=== PATIENT | female | born 1980 | race Caucasian/White ===

== ENCOUNTER 2019-10-15 14:31 | Emergency (ER) | payer SELFPAY ==
--- NOTE | 2019-10-15 15:14 | ER Document Report ---
ED Medical Screen (RME) - General Chief Complaint: Chest Pain Stated Complaint: CHEST PAIN/HEAD PAIN/DIZZINESS Time Seen by Provider: 10/15/19 15:02 Mode of Arrival: Ambulatory Information source: Patient Notes: 39-year-old female patient presenting with chief complaint of chest pain that began yesterday morning upon awaking. She reports associated dizziness and headache. She states her chest feels very tight. She states occasionally her heart feels like it is fluttering. Exam: Heart sounds S1-S2 present, no ectopy noted. I have greeted and performed a rapid initial assessment of this patient. A comprehensive ED assessment and evaluation of the patient, analysis of test results and completion of the medical decision making process will be conducted by additional ED providers. I have specifically instructed the patient or family members with the patient to immediately return to any nursing staff should anything change in the patient's condition or with their chief complaint. TRAVEL OUTSIDE OF THE [place] IN LAST 30 DAYS: No - Related Data Allergies/Adverse Reactions: Sulfa (Sulfonamide Antibiotics) Allergy (Verified 12/31/12 20:14) Home Medications: thyroid Past Medical History - Social History Chew tobacco use (# tins/day): No Frequency of alcohol use: Rare Drug Abuse: None Family history: Malignancy Endocrine Medical History: Reports: Hx Hypothyroidism GI Medical History: Reports: Hx Gastroesophageal Reflux Disease Musculoskeltal Medical History: Reports Hx Musculoskeletal Trauma Past Surgical History: Reports: Hx Orthopedic Surgery - knee right, Hx Thyroid Surgery - Immunizations Immunizations up to date: Yes Hx Diphtheria, Pertussis, Tetanus Vaccination: Yes Physical Exam - Vital signs Vitals: Temp Pulse Resp BP Pulse Ox 99.7 F 109 H 16 132/82 H 98 10/15/19 14:55 10/15/19 14:55 10/15/19 14:55 10/15/19 14:55 10/15/19 14:55 Course - Vital Signs Vital signs: Temp Pulse Resp BP Pulse Ox 99.7 F 109 H 17 118/83 96 10/15/19 14:55 10/15/19 14:55 10/15/19 17:01 10/15/19 17:00 10/15/19 17:01 - Laboratory Result Diagrams: 10/15/19 16:28 10/15/19 16:28 Laboratory results interpreted by me: 10/15/19 10/15/19 16:28 16:28 [place] % (Auto) 16.0 H Potassium 3.5 L Chloride 95 L
--- NOTE | 2019-10-15 15:37 | RADIOLOGY REPORT (SQ) ---
EXAM DESCRIPTION: CHEST 2 VIEWS COMPLETED DATE/TIME: 10/15/2019 3:28 pm REASON FOR STUDY: chest pain COMPARISON: Two-view chest 11/19/2008 EXAM PARAMETERS: NUMBER OF VIEWS: two views TECHNIQUE: Digital Frontal and Lateral radiographic views of the chest acquired. RADIATION DOSE: NA LIMITATIONS: none FINDINGS: LUNGS AND PLEURA: No opacities, masses or pneumothorax. No pleural effusion. MEDIASTINUM AND HILAR STRUCTURES: No masses or contour abnormalities. HEART AND VASCULAR STRUCTURES: Heart normal size. No evidence for failure. BONES: No acute findings. HARDWARE: None in the chest. OTHER: No other significant finding. IMPRESSION: NO ACUTE RADIOGRAPHIC FINDING IN THE CHEST. TECHNICAL DOCUMENTATION: JOB ID: [id number] [employer]- All Rights Reserved Reading location - IP/workstation name: [email or web address]
[2019-10-15 16:36] LABS: A TYPE INFLUENZA AG NEGATIVE (NEGATIVE); B INFLUENZA AG NEGATIVE (NEGATIVE)
[2019-10-15 16:54] LABS: ABSOLUTE LYMPHOCYTES (AUTO) 1.6 10^3/uL (0.5-4.7); ABSOLUTE MONOCYTES (AUTO) 0.8 10^3/uL (0.1-1.4); ABSOLUTE NEUT (AUTO) 2.6 10^3/uL (1.7-8.2); BASOPHILS % (AUTO) 0.8 % (0-2); EOSINOPHILS % (AUTO) 0.2 % (0-6); HEMATOCRIT 38.9 % (36.0-47.0); HEMOGLOBIN 13.8 g/dL (12.0-15.5); LYMPHOCYTES % (AUTO) 31.6 % (13-45); MEAN CORPUSCULAR HEMOGLOBIN 30.5 pg (27.0-33.4); MEAN CORPUSCULAR HGB CONC 35.4 g/dL (32.0-36.0); MEAN CORPUSCULAR VOLUME 86 fl (80-97); PLATELET COUNT 269 10^3/uL (150-450); RED BLOOD COUNT 4.52 10^6/uL (3.72-5.28); RED CELL DISTRIBUTION WIDTH 12.8 % (11.5-14.0); SEGMENTED NEUTROPHILS % (AUTO) 51.4 % (42-78); TOTAL CELLS COUNTED % (AUTO) 100 %
[2019-10-15 17:20] LABS: ALBUMIN 4.5 g/dL (3.5-5.0); ALKALINE PHOSPHATASE 65 U/L (38-126); ANION GAP 14 (5-19); ASPARTATE AMINO TRANSFERASE 24 U/L (14-36); BILIRUBIN,TOTAL 0.4 mg/dL (0.2-1.3); BLOOD UREA NITROGEN 10 mg/dL (7-20); CALCIUM 9.4 mg/dL (8.4-10.2); CARBON DIOXIDE 29 mmol/L (22-30); CHLORIDE 95 mmol/L (98-107); GLUCOSE 93 mg/dL (75-110); POTASSIUM 3.5 mmol/L (3.6-5.0); TOTAL PROTEIN 7.7 g/dL (6.3-8.2)
--- NOTE | 2019-10-15 17:48 | EKG REPORT ---
SEVERITY:- ABNORMAL ECG - SINUS TACHYCARDIA PROBABLE LEFT ATRIAL ABNORMALITY NONSPECIFIC T ABNORMALITIES, DIFFUSE LEADS : Confirmed by: Abhijit Arredondo MD 15-Oct-2019 17:46:09
[2019-10-15] MEDS ORDERED: ONDANSETRON HCL INJ/PF 4 MG/2 ML SDV IV ONE (18:19)
[2019-10-15] MEDS ORDERED: KETOROLAC TROMETHAMINE INJ/PF 30 MG/1 ML SDV IV ONE (18:19)
[2019-10-15] MEDS ORDERED: DIPHENHYDRAMINE HCL 50 MG/ML VIAL IV ONE (18:19)
[2019-10-15] MEDS ORDERED: NORMAL SALINE 1000 ML 1,000 ML IV ONE (18:19)
--- NOTE | 2019-10-15 18:19 | ER Document Report ---
ED General - General Chief Complaint: Chest Pain Stated Complaint: CHEST PAIN/HEAD PAIN/DIZZINESS Time Seen by Provider: 10/15/19 15:02 Primary Care Provider: [facility] [Provider Group] - Follow up in 1 week TRAVEL OUTSIDE OF THE [place] IN LAST 30 DAYS: No - HPI Notes: 39-year-old female to the emergency department with complaints of headache, chest pain, cough, shortness of breath, body aches that began yesterday and have been progressively getting worse. She states that the headache is her worst symptom. She states the headache is all over. She denies photophobia but does endorse some nausea. She states that she has this irritating cough and she feels like her chest is tight and that her heart is racing. She did have her thyroid removed several years ago and is on Synthroid for replacement. She is not had her thyroid studies done in a long time. She states that she has had a fever T-max of 100. She denies any sick contacts but she does work at [email or web address]. She denies any recent travel. She is not in any oral contraceptive. She last was on control about 1 year ago but none since. Denies unilateral leg swelling or erythema. She has never had a clot before PE. She states that she feels the worse when she is trying to get up and walk around. - Related Data Allergies/Adverse Reactions: Sulfa (Sulfonamide Antibiotics) Allergy (Verified 12/31/12 20:14) Home Medications: thyroid Past Medical History - General Information source: Patient - Social History Smoking Status: Never Smoker Chew tobacco use (# tins/day): No Frequency of alcohol use: Rare Drug Abuse: None Family History: Reviewed & Not Pertinent Patient has suicidal ideation: No Patient has homicidal ideation: No Endocrine Medical History: Reports: Hx Hypothyroidism GI Medical History: Reports: Hx Gastroesophageal Reflux Disease Musculoskeletal Medical History: Reports Hx Musculoskeletal Trauma Past Surgical History: Reports: Hx Orthopedic Surgery - knee right, Hx Thyroid Surgery - Immunizations Immunizations up to date: Yes Hx Diphtheria, Pertussis, Tetanus Vaccination: Yes Review of Systems - Review of Systems Constitutional: Fever, Malaise. denies: Chills EENT: Throat pain - Patient reports mild Cardiovascular: Chest pain - sore throat, Palpitations, Heart racing. denies: Dyspnea, Syncope, Dizziness, Lightheaded Respiratory: Cough, Short of breath Gastrointestinal: Nausea. denies: Abdominal pain, Diarrhea, Vomiting Genitourinary: No symptoms reported Female Genitourinary: No symptoms reported Musculoskeletal: See HPI, Muscle pain Skin: No symptoms reported Hematologic/Lymphatic: No symptoms reported Neurological/Psychological: Headaches, Numbness, Tingling -: Yes All other systems reviewed and negative Physical Exam - Vital signs Vitals: Temp Pulse Resp BP Pulse Ox 99.7 F 109 H 16 132/82 H 98 10/15/19 14:55 10/15/19 14:55 10/15/19 14:55 10/15/19 14:55 10/15/19 14:55 Interpretation: Tachycardic - General General appearance: Appears well, Alert In distress: None - HEENT Head: Normocephalic, Atraumatic Eyes: Normal Pupils: PERRL Ears: Normal External canal: Normal Tympanic membrane: Normal Sinus: Normal Nasal: Normal Mouth/Lips: Normal Mucous membranes: Normal Pharynx: Normal. No: Erythema, Peritonsillar abscess, Uvular edema, Potential airway comprom. Neck: Normal, Supple. No: Lymphadenopathy, Meningismus - Respiratory Respiratory status: No respiratory distress - .. No: Tachypnea, Tripod position Chest status: Nontender. No: Pain on movement, Pain with cough, Pain with deep breathing, Accessory muscle use Breath sounds: Normal. No: Rales, Rhonchi, Wheezing Chest palpation: Normal - Cardiovascular Rhythm: Regular Heart sounds: Normal auscultation Murmur: No Notes: No leg edema. - Abdominal Inspection: Normal Distension: No distension Bowel sounds: Normal Tenderness: Nontender. No: Tender, McBurney's point, Eldridge's sign, Guarding, Rebound Organomegaly: No organomegaly - Back Back: Normal, Nontender - Extremities General upper extremity: Normal inspection, Nontender, Normal color, Normal ROM, Normal temperature General lower extremity: Normal inspection, Nontender, Normal color, Normal ROM, Normal temperature, Normal weight bearing. No: Roshni's sign - Neurological Neuro grossly intact: Yes Cognition: Normal Orientation: AAOx4 [place] Coma Scale Eye Opening: Spontaneous Willis Coma Scale Verbal: Oriented Willis Coma Scale Motor: Obeys Commands Willis Coma Scale Total: 15 Speech: Normal Cranial nerves: Normal. No: Facial palsy, Forehead sparing, Gaze palsy, Sensory deficit, Tongue deviation Cerebellar coordination: Normal. No: Gait ataxia Motor strength normal: LUE, RUE, LLE, RLE Additional motor exam normals: Equal loan secretary. No: Pronator drift Sensory: Normal - Psychological Associated symptoms: Normal affect, Normal mood - Skin Skin Temperature: Warm Skin Moisture: Dry Skin Color: Normal Course - Vital Signs Vital signs: Temp Pulse Resp BP Pulse Ox 99.7 F 109 H 14 109/69 93 10/15/19 14:55 10/15/19 14:55 10/15/19 21:01 10/15/19 21:00 10/15/19 21:01 - Laboratory Result Diagrams: 10/15/19 16:28 10/15/19 16:28 Laboratory results interpreted by me: 10/15/19 10/15/19 16:28 16:28 [place] % (Auto) 16.0 H Potassium 3.5 L Chloride 95 L - Diagnostic Test Radiology reviewed: Image reviewed, Reports reviewed - EKG Interpretation by Me Additional EKG results interpreted by me: 10/15/19 Rate 100, rhythm sinus tachycardia, nearly diffuse T wave abnormalities with T wave inversions. No STEMI, T wave inversions were present on prior on 06/17/2015 but really only in the inferior leads Discharge - Discharge Clinical Impression: Cough, Viral syndrome Headache Qualifiers: Headache type: unspecified Headache chronicity pattern: acute headache Intractability: not intractable Qualified Code(s): R51 - Headache Condition: Stable Disposition: HOME, SELF-CARE Instructions: Headache ([facility]) Additional Instructions: PUSH FLUIDS. REST. RETURN IF SYMPTOMS WORSEN. FOLLOW UP WITH PRIMARY CARE PHYSICIAN Prescriptions: Butalb/Acetaminophen/Caffeine [Fioricet (50-325-40 mg) Tablet] 1 tab PO Q6H PRN #30 tab PRN Reason: Ondansetron [Zofran Odt 4 mg Tablet] 1 - 2 tab PO Q4H PRN #15 tab.rapdis PRN Reason: For Nausea/Vomiting Forms: Return to Work Referrals: [facility] [Provider Group] - Follow up in 1 week
[2019-10-15 19:48] LABS: FREE T4 (FREE THYROXINE) 0.98 ng/dL (0.78-2.19)
[2019-10-15 20:02] LABS: THYROID STIMULATING HORMONE 0.98 uIU/mL (0.47-4.68)
--- NOTE | 2019-10-15 20:21 | EKG REPORT ---
SEVERITY:- BORDERLINE ECG - SINUS RHYTHM NONSPECIFIC ST-T CHANGES DIFFUSE : Confirmed by: Abhijit Arredondo MD 15-Oct-2019 20:20:05
[2019-10-15 21:11] VITALS: BP 109/69
== END 2019-10-15 21:55 | disposition home or self-care (01) ==
LOC: ER 14:31
DX: B34.9 Viral infection, unspecified (principal); R05 Cough; R51 Headache; R07.9 Chest pain, unspecified; R42 Dizziness and giddiness; R06.02 Shortness of breath; M79.10 Myalgia, unspecified site; R50.9 Fever, unspecified
CPT/HCPCS: 93005; 99284; 96361; 96374; 96375; 36415; 84439; 83735; 84443; 85025; 80053; 84484; 85379; 87804; 71046; 93010; J1200; J1885; J2405; J7030